=== PATIENT | male | born 1990 | race Caucasian/White ===

== ENCOUNTER 2017-07-29 03:12 | Emergency (ER) | payer SELFPAY ==
[~2017-07-29] VITALS: Ht 182.9 cm; Wt 78.0 kg
[~2017-07-29 03:12] MED LIST: SUBO8MIS SL
[2017-07-29 03:14] VITALS: BP 153/90; PULSE 100; RESP 16; TEMP 97.8; O2SAT 98
[2017-07-29] MEDS ORDERED: diphenhydrAMINE HCL 50 MG/ML VIAL IV PUSH ONE (04:30)
[2017-07-29] MEDS ORDERED: SODIUM CHLOR 0.9% 1000 ML INJ 1,000 ML IV ONE (04:30)
[2017-07-29] MEDS ORDERED: KETOROLAC TROMETHAMINE 30 MG/ML (IVP) VIAL IV PUSH ONE (04:30)
[2017-07-29] MEDS ORDERED: PROCHLORPERAZINE INJ 10 MG/2 ML VIAL IV PUSH ONE (04:30)
[2017-07-29] MEDS ORDERED: TETANUS/DIPHTHERIA TOXOID ADULT 0.5 ML VIAL IM ONE (04:45)
--- NOTE | 2017-07-29 04:58 | PD ---
HPI Chief Complaint: Headache Time Seen by Provider: 04:28 Travel History International Travel<30 days: No Contact w/Intl Traveler<30days: No Traveled to known affect area: No History of Present Illness HPI Since 27-year-old man presents emergent [place] of headache. He states that he is had headaches since he hit his head a couple weeks ago after he fell off a ladder. He states he saw an emergency room doctor that time had a CAT scan that was negative. He is on Dilaudid daily takes it that he buys on the street. He states he started initially for sciatica. He was taking it prior to hitting his head. States despite this is a persistent head pain and pressure especially on the right side and so he came to the emergency department today. No fevers chills or other evidence of occult infection. History Past Medical History Narrative Medical IV drug abuse, Dilaudid Tetanus Vaccination: Unknown Past Surgical History Surgical History: No Previous Surgery Social History Alcohol Use: No (PT DENIES) Tobacco Use: Yes (1 PPD) Allergies-Medications (Allergen,Severity, Reaction): Coded Allergies: No Known Allergies (Verified , 09/15/16) Reported Meds & Prescriptions Reported Meds & Active Scripts Active Reported Suboxone Sublingual Film (Buprenorphine-Naloxone Sublingual Film) 8-2 Mg Film 1 Film SL DAILY Unique ID number required: Review of Systems Except as stated in HPI: all other systems reviewed are Neg Physical Exam Narrative GENERAL: Well 27-year-old man, no acute distress. SKIN: Focused skin assessment warm/dry. HEAD: Atraumatic. Normocephalic. EYES: Pupils equal and round. No scleral icterus. No injection or drainage. ENT: No nasal bleeding or discharge. Mucous membranes pink and moist. NECK: Trachea midline. No JVD. CARDIOVASCULAR: Regular rate and rhythm. No murmur appreciated. RESPIRATORY: No accessory muscle use. Clear to auscultation. Breath sounds equal bilaterally. GASTROINTESTINAL: Abdomen soft, non-tender, nondistended. Hepatic and splenic margins not palpable. MUSCULOSKELETAL: No obvious deformities. No clubbing. No cyanosis. No edema. NEUROLOGICAL: Awake and alert. No obvious cranial nerve deficits. Motor grossly within normal limits. Normal speech. PSYCHIATRIC: Appropriate mood and affect; insight and judgment normal. Data Data Last Documented VS Vital Signs Date Time Temp Pulse Resp B/P (MAP) Pulse Ox O2 Delivery O2 Flow Rate FiO2 07/29/17 03:14 97.8 100 16 153/90 (111) 98 Room Air Orders Orders Ct Brain W/O Iv Contrast(Rout) (07/29/17 ) Prochlorperazine Inj (Compazine Inj) (07/29/17 04:30) Diphenhydramine Inj (Benadryl Inj) (07/29/17 04:30) Ketorolac Inj (Toradol Inj) (07/29/17 04:30) Sodium Chlor 0.9% 1000 Ml Inj (Ns 1000 M (07/29/17 04:30) Tetanus/Diphtheria Tox Adult (Tetanus/Di (07/29/17 04:45) MDM Medical Decision Making Medical Screen Exam Complete: Yes Emergency Medical Condition: Yes Interpretation(s) CT head: Negative. Differential Diagnosis Concussion, opiate-induced hyperalgesia, migraine, bleed, infection or dural vein thrombosis, other Narrative Course Medical decision-making new 27-year-old man with persistent headache after trauma several weeks ago, possibly related to opiate abuse eyebrow GC a. Looks well. No infectious symptoms. We'll repeat CT but expected to be negative. Recommend supportive treatment. Diagnosis Primary Impression: Headache Additional Instructions: Take NSAIDs as needed for headache. Do not use illicit drugs. Return to the emergency department for any new or worsening symptoms. Disposition: 01 DISCHARGE HOME Condition: Stable Galo Matthews MD Jul 29, 2017 04:58
--- NOTE | 2017-07-29 05:17 | RADRPT ---
EXAM DATE/TIME: 07/29/2017 04:35 [facility] COMPARISON: CT BRAIN W/O CONTRAST, April 05, 2015, 15:04. INDICATIONS : Cephalgia. RADIATION DOSE: 31.53 CTDIvol (mGy) MEDICAL HISTORY : None SURGICAL HISTORY : None. ENCOUNTER: Initial ACUITY: 1 day PAIN SCALE: 9/10 LOCATION: cranial TECHNIQUE: Multiple contiguous axial images were obtained of the head. Using automated exposure control and adj ustment of the mA and/or kV according to patient size, radiation dose was kept as low as reasonably a chievable to obtain optimal diagnostic quality images. DICOM format image data is available electro nically for review and comparison. FINDINGS: CEREBRUM: The ventricles are normal for age. No evidence of midline shift, mass lesion, hemorrhage or acute in farction. No extra-axial fluid collections are seen. POSTERIOR FOSSA: The cerebellum and brainstem are intact. The 4th ventricle is midline. The cerebellopontine angle i s unremarkable. EXTRACRANIAL: The visualized portion of the orbits is intact. SKULL: The calvaria is intact. No evidence of skull fracture. CONCLUSION: Normal examination for a patient of this age. Richardson Clement MD on July 29, 2017 at 5:13 Board Certified Radiologist. This report was verified electronically.
== END 2017-07-29 05:47 | disposition home or self-care (01) ==
LOC: NEPC 03:12
DX: R51 Headache (principal); Z23 Encounter for immunization
CPT/HCPCS: 70450; 90471; 90714; 96361; 96374; 96375; 99285; J0780; J1200; J1885; J7030

== ENCOUNTER 2017-12-25 01:30 | Emergency (ER) | payer OTHER ==
[~2017-12-25] VITALS: Ht 182.9 cm; Wt 98.0 kg
[2017-12-25] VITALS (8 sets, daily range): BP systolic 112–118; BP diastolic 55–70; PULSE 71–100; RESP 16–22; TEMP 97.9–100.1; O2SAT 95–100
[2017-12-25] MEDS ORDERED: SODIUM CHLOR 0.9% 1000 ML INJ 1,000 ML IV ONE ×2 (01:40→04:15)
[2017-12-25] MEDS ORDERED: SODIUM CHLORIDE 0.9% FLUSH 10 ML FLUSH IVF PRN (01:45)
[2017-12-25 02:07] LABS: AUTOMATED NEUTROPHIL # 7.8 TH/MM3 (1.8-7.7); BASOPHIL % 0.2 % (0.0-2.0); EOSINOPHIL # 0.1 TH/MM3 (0-0.4); EOSINOPHIL % 1.1 % (0.0-4.0); HEMATOCRIT 37.7 % (39.0-51.0); HEMOGLOBIN 13.3 GM/DL (13.0-17.0); LYMPH % 10.1 % (9.0-44.0); MEAN CELL VOLUME 86.8 FL (80.0-100.0); MEAN CORPUSCULAR HEMOGLOBIN 30.6 PG (27.0-34.0); MEAN CORPUSCULAR HGB CONC 35.2 % (32.0-36.0); MEAN PLATELET VOLUME 8.1 FL (7.0-11.0); MONO % 6.9 % (0.0-8.0); MONOCYTE # 0.7 TH/MM3 (0-0.9); NEUT % 81.7 % (16.0-70.0); PLATELET COUNT 241 TH/MM3 (150-450); RED BLOOD COUNT 4.34 MIL/MM3 (4.50-5.90); RED CELL DISTRIBUTION WIDTH 14.1 % (11.6-17.2); WHITE BLOOD COUNT 9.6 TH/MM3 (4.0-11.0)
[2017-12-25 02:24] LABS: ACETAMINOPHEN LESS THAN 2.0 MCG/ML (10.0-30.0); ALBUMIN 3.8 GM/DL (3.4-5.0); ALKALINE PHOSPHATASE 97 U/L (45-117); ALT (GPT) 56 U/L (12-78); AST (GOT) 51 U/L (15-37); BICARBONATE 26.8 MEQ/L (21.0-32.0); BLOOD UREA NITROGEN 17 MG/DL (7-18); CALCIUM 8.1 MG/DL (8.5-10.1); CHLORIDE 104 MEQ/L (98-107); CREATININE 0.86 MG/DL (0.60-1.30); GLOMERULAR FILTRATION RATE 107 ML/MIN (>89); GLUCOSE,RANDOM 106 MG/DL (74-106); SODIUM (NA) 139 MEQ/L (136-145); TOTAL BILIRUBIN ADULT 0.4 MG/DL (0.2-1.0); TOTAL PROTEIN 7.9 GM/DL (6.4-8.2)
--- NOTE | 2017-12-25 02:29 | RADRPT ---
EXAM DATE/TIME: 12/25/2017 02:26 [facility] COMPARISON: CHEST SINGLE AP, September 15, 2016, 13:15. INDICATIONS : Short of breath. MEDICAL HISTORY : None. SURGICAL HISTORY : None. ENCOUNTER: Initial ACUITY: 1 day PAIN SCORE: 0/10 LOCATION: Bilateral chest FINDINGS: A single view of the chest demonstrates the lungs to be symmetrically aerated without evidence of mas s, infiltrate or effusion. The cardiomediastinal contours are unremarkable. Osseous structures are intact. CONCLUSION: 1. No acute cardiopulmonary disease. Roque Bowman MD on December 25, 2017 at 2:28 Board Certified Radiologist. This report was verified electronically.
--- NOTE | 2017-12-25 02:47 | PD ---
HPI Chief Complaint: OD/ Ingestion Time Seen by Provider: 01:40 Travel History International Travel<30 days: No Contact w/Intl Traveler<30days: No Traveled to known affect area: No History of Present Illness HPI 27-year-old male admits to injecting heroin. Patient with prior substance abuse dependency 4 months off of heroin this evening was with friends and felt depressed so decided to have a friend inject heroin to him to help his pain. Patient was subsequently noted to have marked decreased level of consciousness and became unresponsive paramedics were called to the scene and according to Wilson act by the intellectual property lawyer he was having decreased respirations 2 breaths per minute. Upon EMS arrival patient was given Narcan with marked improvement of level of consciousness and presents now mildly somnolent but able to relay his own history. Patient denies other concerns or complaints and denies other substance use. PFSH Past Medical History Narrative Medical ADHD anxiety depression heroin abuse; nursing notes reviewed ADHD: Yes Asthma: No Anxiety: Yes Depression: Yes Cancer: No Cardiovascular Problems: No COPD: No Diminished Hearing: No Endocrine: No Genitourinary: No Immune Disorder: No Musculoskeletal: Yes (CHRONIC BACK PAIN, SCOLIOSIS) Neurologic: No Psychiatric: Yes (H/O ADHD) Reproductive: No Respiratory: Yes (PLEURECY) Immunizations Current: Yes Sleep Apnea: No Past Surgical History Oral Surgery: Yes Social History Alcohol Use: No Tobacco Use: No Substance Use: Yes (heroin) Allergies-Medications (Allergen,Severity, Reaction): Coded Allergies: No Known Allergies (Verified Adverse Reaction, Unknown, 12/25/17) Reported Meds & Prescriptions Reported Meds & Active Scripts Active Reported Suboxone Sublingual Film (Buprenorphine-Naloxone Sublingual Film) 8-2 Mg Film 1 Film SL DAILY Unique ID number required: Review of Systems Except as stated in HPI: all other systems reviewed are Neg Physical Exam Narrative GENERAL: Well-developed well-nourished male no acute distress or respiratory distress mildly somnolent, gcs 13 SKIN: Warm and dry. HEAD: Normocephalic. EYES: No scleral icterus. No injection or drainage. NECK: Supple, trachea midline. No JVD or lymphadenopathy. CARDIOVASCULAR: Regular rate and rhythm without murmurs, gallops, or rubs. RESPIRATORY: Breath sounds equal bilaterally. No accessory muscle use. GASTROINTESTINAL: Abdomen soft, non-tender, nondistended. MUSCULOSKELETAL: No cyanosis, or edema. BACK: Nontender without obvious deformity. No CVA tenderness. Data Data Last Documented VS Vital Signs Date Time Temp Pulse Resp B/P (MAP) Pulse Ox O2 Delivery O2 Flow Rate FiO2 12/25/17 06:04 71 18 113/55 (74) 96 Room Air Orders Orders Electrocardiogram (12/25/17 01:40) Complete Blood Count With Diff (12/25/17 01:40) Comprehensive Metabolic Panel (12/25/17 01:40) Act Partial Throm Time (Ptt) (12/25/17 01:40) Urinalysis - C+S If Indicated (12/25/17 01:40) Chest, Single Ap (12/25/17 01:40) Blood Glucose (12/25/17 01:40) Iv Access Insert/Monitor (12/25/17 01:40) Ecg Monitoring (12/25/17 01:40) Oximetry (12/25/17 01:40) Sodium Chloride 0.9% Flush (Ns Flush) (12/25/17 01:45) Sodium Chlor 0.9% 1000 Ml Inj (Ns 1000 M (12/25/17 01:40) Drug Screen, Random Urine (12/25/17 01:40) Alcohol (Ethanol) (12/25/17 01:40) Salicylates (Aspirin) (12/25/17 01:40) Tylenol (Acetaminophen) (12/25/17 01:40) Sodium Chlor 0.9% 1000 Ml Inj (Ns 1000 M (12/25/17 04:15) Psych Screen (12/25/17 06:10) Labs Laboratory Tests Test 12/25/17 01:50 White Blood Count 9.6 TH/MM3 Red Blood Count 4.34 MIL/MM3 Hemoglobin 13.3 GM/DL Hematocrit 37.7 % Mean Corpuscular Volume 86.8 FL Mean Corpuscular Hemoglobin 30.6 PG Mean Corpuscular Hemoglobin Concent 35.2 % Red Cell Distribution Width 14.1 % Platelet Count 241 TH/MM3 Mean Platelet Volume 8.1 FL Neutrophils (%) (Auto) 81.7 % Lymphocytes (%) (Auto) 10.1 % Monocytes (%) (Auto) 6.9 % Eosinophils (%) (Auto) 1.1 % Basophils (%) (Auto) 0.2 % Neutrophils # (Auto) 7.8 TH/MM3 Lymphocytes # (Auto) 1.0 TH/MM3 Monocytes # (Auto) 0.7 TH/MM3 Eosinophils # (Auto) 0.1 TH/MM3 Basophils # (Auto) 0.0 TH/MM3 CBC Comment DIFF FINAL Differential Comment Activated Partial Thromboplast Time 23.6 SEC Blood Urea Nitrogen 17 MG/DL Creatinine 0.86 MG/DL Random Glucose 106 MG/DL Total Protein 7.9 GM/DL Albumin 3.8 GM/DL Calcium Level 8.1 MG/DL Alkaline Phosphatase 97 U/L Aspartate Amino Transf (AST/SGOT) 51 U/L Alanine Aminotransferase (ALT/SGPT) 56 U/L Total Bilirubin 0.4 MG/DL Sodium Level 139 MEQ/L Potassium Level 3.5 MEQ/L Chloride Level 104 MEQ/L Carbon Dioxide Level 26.8 MEQ/L Anion Gap 8 MEQ/L Estimat Glomerular Filtration Rate 107 ML/MIN Salicylates Level LESS THAN 1.7 MG/DL Acetaminophen Level LESS THAN 2.0 MCG/ML Ethyl Alcohol Level 20 MG/DL [facility] Medical Decision Making Medical Screen Exam Complete: Yes Emergency Medical Condition: Yes Medical Record Reviewed: Yes Interpretation(s) EKG normal sinus rhythm rate 84 left atrial enlargement right ventricular conduction delay no acute ST elevation or injury pattern Differential Diagnosis Polysubstance ingestion, heroin overdose, depression, suicidal ideation, mood disorder, bipolar disorder Narrative Course 37-year-old male presents to the emergency department by EMS transport after receiving Narcan for accidental heroin overdose. Patient denies being suicidal but is poor historian Lab values resulted and found to be grossly within normal limits patient still has not produced urine has received 2 L normal saline Patient remains drowsy but readily awakened to voice and able to answer questions appropriately. Patient sleeping off effects of presumptive polysubstance ingestion; patient otherwise medically cleared for psych screening. Physician Communication Physician Communication medically cleared Diagnosis Primary Impression: Heroin overdose Qualified Codes: T40.1X4A - Poisoning by heroin, undetermined, initial encounter Additional Impression: Bipolar disorder Qualified Codes: F31.9 - Bipolar disorder, unspecified Meri Reynoso MD Dec 25, 2017 02:47
[2017-12-25 14:03] LABS: BILIRUBIN, URINE NEG (NEG); BLOOD, URINE NEG (NEG); GLUCOSE,URINE NEG (NEG); KETONE, URINE NEG (NEG); MUCUS URINE MANY /lpf (OCC); NITRITE,URINE NEG (NEG); SQUAMOUS EPITHELIAL CELL URINE <1 /hpf (0-5); URINE COLOR YELLOW (YELLW/STRAW); URINE LEUKOCYTE ESTERASE NEG (NEG)
--- NOTE | 2017-12-25 22:12 | EKG ---
Date Performed: 12/25/2017 Time Performed: 02:37:52 PTAGE: 27 years EKG: Sinus rhythm POSSIBLE LEFT ATRIAL ENLARGEMENT POSSIBLE RIGHT VENTRICULAR CONDUCTION DELAY BORDERLINE ECG PREVIOUS TRACING : 09/15/2016 12.50 Since the prior tracing, there has been no significant [place]oya DOCTOR: Flaco Crouch Interpretating Date/Time 12/25/2017 22:10:52
--- NOTE | 2017-12-25 22:39 | PD ---
Physical Exam Date Seen by Provider: Dec 25, 2017 Time Seen by Provider: 22:39 Narrative For full history and physical examination please see previous providers note. Data Data Last Documented VS Vital Signs Date Time Temp Pulse Resp B/P (MAP) Pulse Ox O2 Delivery O2 Flow Rate FiO2 12/25/17 18:37 100.1 90 22 117/55 (75) 96 Room Air Orders Orders Electrocardiogram (12/25/17 01:40) Complete Blood Count With Diff (12/25/17 01:40) Comprehensive Metabolic Panel (12/25/17 01:40) Act Partial Throm Time (Ptt) (12/25/17 01:40) Urinalysis - C+S If Indicated (12/25/17 01:40) Chest, Single Ap (12/25/17 01:40) Blood Glucose (12/25/17 01:40) Iv Access Insert/Monitor (12/25/17 01:40) Ecg Monitoring (12/25/17 01:40) Oximetry (12/25/17 01:40) Sodium Chloride 0.9% Flush (Ns Flush) (12/25/17 01:45) Sodium Chlor 0.9% 1000 Ml Inj (Ns 1000 M (12/25/17 01:40) Drug Screen, Random Urine (12/25/17 01:40) Alcohol (Ethanol) (12/25/17 01:40) Salicylates (Aspirin) (12/25/17 01:40) Tylenol (Acetaminophen) (12/25/17 01:40) Sodium Chlor 0.9% 1000 Ml Inj (Ns 1000 M (12/25/17 04:15) Psych Screen (12/25/17 06:10) Diet Regular Basic (12/25/17 Lunch) Diet Regular Basic (12/25/17 Dinner) Labs Laboratory Tests Test 12/25/17 01:50 12/25/17 13:05 White Blood Count 9.6 TH/MM3 Red Blood Count 4.34 MIL/MM3 Hemoglobin 13.3 GM/DL Hematocrit 37.7 % Mean Corpuscular Volume 86.8 FL Mean Corpuscular Hemoglobin 30.6 PG Mean Corpuscular Hemoglobin Concent 35.2 % Red Cell Distribution Width 14.1 % Platelet Count 241 TH/MM3 Mean Platelet Volume 8.1 FL Neutrophils (%) (Auto) 81.7 % Lymphocytes (%) (Auto) 10.1 % Monocytes (%) (Auto) 6.9 % Eosinophils (%) (Auto) 1.1 % Basophils (%) (Auto) 0.2 % Neutrophils # (Auto) 7.8 TH/MM3 Lymphocytes # (Auto) 1.0 TH/MM3 Monocytes # (Auto) 0.7 TH/MM3 Eosinophils # (Auto) 0.1 TH/MM3 Basophils # (Auto) 0.0 TH/MM3 CBC Comment DIFF FINAL Differential Comment Activated Partial Thromboplast Time 23.6 SEC Blood Urea Nitrogen 17 MG/DL Creatinine 0.86 MG/DL Random Glucose 106 MG/DL Total Protein 7.9 GM/DL Albumin 3.8 GM/DL Calcium Level 8.1 MG/DL Alkaline Phosphatase 97 U/L Aspartate Amino Transf (AST/SGOT) 51 U/L Alanine Aminotransferase (ALT/SGPT) 56 U/L Total Bilirubin 0.4 MG/DL Sodium Level 139 MEQ/L Potassium Level 3.5 MEQ/L Chloride Level 104 MEQ/L Carbon Dioxide Level 26.8 MEQ/L Anion Gap 8 MEQ/L Estimat Glomerular Filtration Rate 107 ML/MIN Salicylates Level LESS THAN 1.7 MG/DL Acetaminophen Level LESS THAN 2.0 MCG/ML Ethyl Alcohol Level 20 MG/DL Urine Color YELLOW Urine Turbidity CLEAR Urine pH 6.0 Urine Specific [place] 1.020 Urine Protein TRACE mg/dL Urine Glucose (UA) NEG mg/dL Urine Ketones NEG mg/dL Urine Occult Blood NEG Urine Nitrite NEG Urine Bilirubin NEG Urine Urobilinogen LESS THAN 2.0 MG/DL Urine Leukocyte Esterase NEG Urine RBC 11 /hpf Urine WBC 2 /hpf Urine Squamous Epithelial Cells <1 /hpf Urine Mucus MANY /lpf Microscopic Urinalysis Comment CULT NOT INDICATED Urine Opiates Screen POS Urine Barbiturates Screen NEG Urine Amphetamines Screen POS Urine Benzodiazepines Screen POS Urine Cocaine Screen POS Urine Cannabinoids Screen NEG [facility] Medical Record Reviewed: Yes Supervised Visit with AGUEDA: No Narrative Course Patient was seen and evaluated in the emergency department, medically cleared. He was then evaluated in [facility] and will be transferred to [facility]. Diagnosis Primary Impression: Heroin overdose Qualified Codes: T40.1X4A - Poisoning by heroin, undetermined, initial encounter Additional Impression: Bipolar disorder Qualified Codes: F31.9 - Bipolar disorder, unspecified Patient Instructions: General Instructions Departure Forms: Tests/Procedures Additional Instruction: GO TO [facility] FOR FURTHER EVALUATION AND TREATMENT Disposition: 65 DISC TO PSYCH CARE FACILITY Condition: Stable MarvinFlaquitaKelinkenny HERNANDEZ Dec 25, 2017 22:39
== END 2017-12-25 23:49 ==
LOC: NEPC 01:30 → NEPJ 23:49
DX: T40.1X1A Poisoning by heroin, accidental (unintentional), initial encounter (principal); F31.9 Bipolar disorder, unspecified; F90.9 Attention-deficit hyperactivity disorder, unspecified type; F41.9 Anxiety disorder, unspecified; M41.9 Scoliosis, unspecified
CPT/HCPCS: 71045; 80053; 80307; 81001; 85025; 85730; 93005; 96360; 96361; 99285; J7030